=== PATIENT | female | born 1995 | race Caucasian/White ===

== ENCOUNTER 2017-06-13 09:54 | Emergency (ER) | END 2017-06-13 14:04 | disposition home or self-care (01) ==

== ENCOUNTER 2017-08-10 12:23 | Emergency (ER) | END 2017-08-10 15:54 | disposition home or self-care (01) ==

== ENCOUNTER 2018-03-20 20:08 | Inpatient (IN) | END 2018-03-24 16:40 | disposition home or self-care (01) | DRG 807 ==